=== PATIENT | female | born 1975 | race Two or more races ===

== ENCOUNTER 2023-06-05 09:56 | Emergency (ER) | payer SELFPAY ==
[~2023-06-05] VITALS: Ht 152.4 cm; Wt 62.6 kg
[2023-06-05] MEDS ORDERED: KETOROLAC TROMETH 60MG/2ML VIAL IM ONE (13:00)
[2023-06-05] MEDS ORDERED: DexAMETHasone SOD PHOS 10MG/1ML VIAL INJ IM ONE (13:00)
[2023-06-05 13:52] VITALS: BP 131/75; PULSE 86; RESP 18; TEMP 98; O2SAT 99
[2023-06-05 14:01] LABS: Rapid Strep A Screen-Throat Negative
[2023-06-05 14:14] LABS: COVID19 ANTIGEN SOFIA FIA NEGATIVE (NEGATIVE)
[2023-06-05 14:55] LABS: Rapid Influenza A Negative (Negative); Rapid Influenza B Negative (Negative)
[2023-06-05] MEDS ORDERED: ACET500T58 PO (15:10)
[2023-06-05] MEDS ORDERED: BENZ100C97 PO (15:10)
[2023-06-05] MEDS ORDERED: LORA-622 PO (15:10)
[2023-06-05] MEDS ORDERED: IBUP-1454 PO (15:10)
== END 2023-06-05 15:26 | disposition home or self-care (01) ==
LOC: ER 09:56
DX: J06.9 Acute upper respiratory infection, unspecified (principal); B97.89 Other viral agents as the cause of diseases classified elsewhere; Z20.822 Contact with and (suspected) exposure to COVID-19
CPT/HCPCS: 36415; 71045; 87070; 87426; 87804; 87880; 96372; 99284; J1100; J1885

== ENCOUNTER → 2023-11-14 | Outpatient (CLI) | payer MEDICAID ==
[~2023-11-14] MED LIST: ACET500T58 PO; BENZ100C97 PO; IBUP-1454 PO; LORA-622 PO
[2023-11-14 12:10] LABS: Basophils # (auto) 0.1 10 ^3/uL (0-0.2); Basophils % (auto) 0.6 % (0.0-2.0); Eosinophils # (auto) 0.4 10 ^3/uL (0-0.8); Eosinophils % (auto) 4.5 % (0.0-7.0); Hemoglobin 13.2 g/dL (12.2-16.2); Lymphocytes # (auto) 3.3 10 ^3/uL (0.4-5.4); Lymphocytes % (auto) 34.2 % (10.0-50.0); Mean Corpuscular Hemoglobin 30.2 pg (28.0-32.0); Mean Corpuscular Hgb Conc. 32.9 g/dL (32.0-36.0); Mean Corpuscular Volume 91.6 fL (80.0-100.0); Monocytes # (auto) 0.5 10 ^3/uL (0-1.3); Monocytes % (auto) 5.1 % (0.0-12.0); Neutrophils # (auto) 5.4 10 ^3/uL (1.6-8.6); Neutrophils % (auto) 55.6 % (37.0-80.0); Red Blood Cells 4.36 10^6/uL (4.0-5.20); Red Cell Distribution Width 12.9 % (11.8-14.3); White Blood Cell 9.8 10^3/uL (4.4-10.8)
[2023-11-14 12:28] LABS: Urine Bacteria NONE SEEN /hpf (None Seen); Urine Blood 1+ /uL (Negative); Urine Clarity Clear (Clear); Urine Color Colorless (Yellow); Urine Protein, UAD Negative (Negative); Urine Specific Gravity 1.013 (1.001-1.035); Urine Urobilinogen Normal (Negative); Urine WBC <1 /hpf (0 - 5)
[2023-11-14 13:08] LABS: Alanine Aminotransferase 18 U/L (7-40); Albumin 4.3 g/dL (3.2-4.8); Alkaline Phosphatase 70 U/L (46-116); Anion Gap 6 (5-15); Aspartate Aminotransferase 14 U/L (13-40); BUN/Creatinine Ratio 21.1 (10.0-20.0); Bilirubin, Total 0.4 mg/dL (0.2-1.0); Blood Urea Nitrogen 12 mg/dL (9-23); Calcium 9.5 mg/dL (8.5-10.1); Carbon Dioxide 28 mmol/L (20-30); Chloride 103 mmol/L (98-107); Glucose 90 mg/dL (74-106); Potassium 4.1 mmol/L (3.5-5.1); Sodium 137 mmol/L (136-145)
[2023-11-14 13:09] LABS: Total Protein 7.3 g/dL (5.7-8.2)
[2023-11-14 13:11] LABS: Beta HCG, Quantitative 0.9 mIU/mL (1.5-4.2); Thyroid Stimulating Hormone 3.42 uIU/mL (0.55-4.78)
== END | disposition home or self-care (01) ==
LOC: LAB 11:56
PROVIDERS: ATTEND Obstetrics & Gynecology Gynecologic Oncology
DX: N92.0 Excessive and frequent menstruation with regular cycle (principal); N94.6 Dysmenorrhea, unspecified; R10.2 Pelvic and perineal pain
CPT/HCPCS: 36415; 80053; 81001; 81025; 84443; 84702; 85025

== ENCOUNTER 2024-05-05 09:29 | Emergency (ER) | payer MEDICAID ==
[~2024-05-05] VITALS: Ht 167.6 cm; Wt 63.0 kg
[2024-05-05 10:00] VITALS: TEMP 97.8
[2024-05-05] MEDS: ONDANSETRON ODT 4 MG TAB PO ONE (10:31)
[2024-05-05] MEDS: MORPHINE SULFATE 4 MG/ML SYR/VIAL IM ONE (10:32)
[2024-05-05 10:33] VITALS: O2SAT 99
[2024-05-05 11:02] VITALS: BP 124/90; PULSE 89; RESP 18
[2024-05-05] MEDS ORDERED: IBUP-1455 PO (11:53)
[2024-05-05] MEDS ORDERED: CYCL-837 PO (11:53)
== END 2024-05-05 12:02 | disposition home or self-care (01) ==
LOC: ER 09:29
DX: S13.4XXA Sprain of ligaments of cervical spine, initial encounter (principal); R07.89 Other chest pain; Z79.899 Other long term (current) drug therapy; V89.2XXA Person injured in unspecified motor-vehicle accident, traffic, initial encounter; Y93.I9 Activity, other involving external motion; Y92.89 Other specified places as the place of occurrence of the external cause; Y99.8 Other external cause status
CPT/HCPCS: 71045; 72040; 73030; 96372; 99284; J2270; Q0162

== ENCOUNTER 2025-06-30 19:29 | Emergency (ER) | payer MEDICAID ==
[~2025-06-30] VITALS: Ht 152.4 cm; Wt 64.2 kg
[~2025-06-30 19:29] MED LIST changes: +CYCL-837 PO; +IBUP-1455 PO
[2025-06-30 19:30] VITALS: BP 128/74; PULSE 79; RESP 14; TEMP 98.1; O2SAT 99
[2025-06-30 21:52] LABS: Urine Protein, UAD Negative (Negative)
--- NOTE | 2025-06-30 21:57 | DVH ---
EXAM: XY LUMBAR SPINE 3 VIEW INDICATION: lumbar back pain TECHNIQUE: 2 views of the lumbar spine COMPARISON: XY CERVICAL SPINE 3V on DOS: 05/05/24 FINDINGS/IMPRESSION: No radiographic evidence of an acute osseous abnormality. There is no acute fracture, osseous malalignment, or aggressive focal osseous lesion. No endplate compression fracture, spondylolisthesis, or pars defect. IUD in place. Mild stool burden.
[2025-06-30] MEDS ORDERED: IBUP-1456 PO (23:18)
[2025-06-30] MEDS ORDERED: CYCL-837 PO (23:18)
--- NOTE | 2025-06-30 23:19 | ED.PDOC ---
Back pain HPI HPI Comments 50-year-old female presents to ER with complaints of back pain x2 weeks. Patient reports she has been experiencing unprovoked diffuse lower lumbar back pain x2 weeks. She rates her current pain an 8/10 diffuse to lower lumbar region with intermittent numbness/tingling down posterior bilateral legs. Notes she has been taking ibuprofen for her pain without relief and presents to ER ambulatory on arrival, with steady gait, in no distress. Denies fever, body aches, chills, n/v, chest pain, abdominal pain, trauma/falls/heavy lifting, extremity weakness, changes in urination/bm or any further symptoms/complaints Chief Complaint: Back Pain Time Seen by MD: 20:43 Primary Care Provider: GertrudisOA Reviewed Notes: Nurses Notes, Medications, Allergies Allergies: Coded Allergies: No Known Drug Allergy (Verified Allergy, Unknown, 06/05/23) Home Meds Active Scripts Ibuprofen (Ibuprofen) 800 Mg Tab, 1 TAB PO TID PRN, #30 TAB 0 Refills Prov:JOANN MICHAUD 06/30/25 Cyclobenzaprine Hcl (Cyclobenzaprine Hcl) 5 Mg Tab, 1 TAB PO QHSP, #14 TAB 0 Refills Prov:JOANN MICHAUD 06/30/25 Ibuprofen Micronized (Ibuprofen) 800 Mg Tab, 800 MG PO TIDPRN PRN for 10 Days, #30 TAB 0 Refills Prov:PURVI WAGNER NP 05/05/24 Cyclobenzaprine Hcl (Cyclobenzaprine Hcl) 5 Mg Tab, 1 TAB PO QHSP PRN for 30 Days, #30 TAB 0 Refills Prov:PURVI WAGNER NP 05/05/24 Benzonatate (Benzonatate) 100 Mg Cap, 1 CAP PO TID, #20 CAP Prov:ANNAMARIE GILL PAC 06/05/23 Loratadine (Claritin) 10 Mg Tab, 1 TAB PO DAILY for 14 Days, #14 TAB 0 Refills Prov:ANNAMARIE GILL 06/05/23 Ibuprofen (Ibuprofen) 600 Mg Tab, 1 TAB PO Q6HP PRN, #30 TAB Prov:ANNAMARIE GILL PAC 06/05/23 Acetaminophen (Acetaminophen) 500 Mg Tab, 500 MG PO Q4HP PRN, #30 TAB Prov:ANNAMARIE GILL 06/05/23 Information Source: Patient Mode of Arrival: Ambulatory Past Medical History PAST MEDICAL HISTORY: Denies Surgical History: Denies all surgeries INTERNAL MEDICINE NURSE PRACTITIONER History: No Pertinent INTERNAL MEDICINE NURSE PRACTITIONER History Family History Family History: Unknown Social History Smoker: Non-Smoker Alcohol: Denies ETOH Use Drugs: Denies Drug Use Lives In: Home Constitutional: denies: chills, diaphoresis, fatigue, fever, malaise, sweats, weakness, others EENTM: denies: blurred vision, double vision, ear bleeding, ear discharge, ear drainage, ear pain, ear ringing, eye pain, eye redness, hearing loss, mouth pain, mouth swelling, nasal discharge, nose bleeding, nose congestion, nose pain, photophobia, tearing, throat pain, throat swelling, voice changes, others Respiratory: denies: cough, hemoptysis, orthopnea, SOB at rest, shortness of breath, SOB with excertion, stridor, wheezing, others Cardiovascular: denies: chest pain, dizzy spells, diaphoresis, Dyspnea on exertion, edema, irregular heart beat, left arm pain, lightheadedness, palpitations, PND, syncope, others Gastrointestinal: denies: abdomen distended, abdominal pain, blood streaked bowels, constipated, diarrhea, dysphagia, difficulty swallowing, hematemesis, melena, nausea, poor appetite, poor fluid intake, rectal bleeding, rectal pain, vomiting, others Genitourinary: denies: abnormal vagina bleeding, burning, dyspareunia, dysuria, flank pain, frequency, hematuria, incontinence, pain, , vagina discharge, urgency, others Neurological: denies: dizziness, fainting, headache, left sided numbness, left sided weakness, numbness, paresthesia, pre-existing deficit, right sided numbness, right sided weakness, seizure, speech problems, tingling, tremors, weakness, others Musculoskeletal: reports: others (As stated in HPI) Integumetry: denies: bruises, change in color, change in hair/nails, dryness, laceration, lesions, lumps, rash, wounds, others Allergic/Immunocompromised: denies: Difficulty Healing, Frequent Infections, Hives, Itching, others Hematologic/Lymphatic: denies: anemia, blood clots, easy bleeding, easy bruising, swollen glands, others Endocrine: denies: excessive hunger, excessive sweating, excessive thirst, excessive urination, flushing, intolerance to cold, intolerance to heat, unexplained weight gain, unexplained weight loss, others Psychiatric: denies: anxiety, bipolar disorder, depression, hopeless, panic disorder, schizophrenia, sleepless, suicidal, others Physical Exam General Appearance: No Apparent Distress HEENT: PERRL/EOMI Neck: Full Range of Motion, Non-Tender, Normal Respiratory: Chest Non-Tender, Lungs Clear, No Accessory Muscle Use, No Respiratory Distress, Normal Breath Sounds Cardiovascular: No Murmur, No Gallop, Regular Rate/Rhythm Breast Exam: Deferred Gastrointestinal: Non Tender, No Pulsatile Mass, Soft Genitalia: Deferred Pelvic: Deferred Rectal: Deferred Extremities: No calf tenderness, Normal capillary refill, Normal range of motion Musculoskeletal : Extremity Location: Back (TTP to bilateral lower lumbar paraspinals and centralized to lower lumbar spine noted. No skin changes noted. Steady gait appreciated) Neurologic: Alert, No Motor Deficits, Normal Affect, Normal Mood, No Sensory Deficits Cerebellar Function: Normal Reflexes: Normal Skin: Dry, Warm Peripheral Pulses: 2+ femoral (R), 2+ femoral (L), 2+ dorsalis pedis (R), 2+ dorsalis pedis (L), 2+ Radial (R), 2+ Radial (L), 2+ Brachial (R), 2+ Brachial (L) Lymphatic: No Adenopathy Was a procedure done? Was a procedure done?: No Sedation Sedation?: No Back Pain Differential Dx Differential Diagnosis: AAA, Fracture, Other (UTI) X-Ray, Labs, Meds, VS Vital Signs Date Time Temp Pulse Resp B/P (MAP) Pulse Ox O2 Delivery O2 Flow Rate FiO2 06/30/25 19:30 Room Air 06/30/25 19:30 98.1 79 14 128/74 99 98.1 Lab Test 06/30/25 21:15 Range/Units Urine Color Light-brown Yellow Urine Clarity Clear Clear Urine pH 6.0 5.0-9.0 Urine Specific [place] 1.017 1.001-1.035 Urine Protein Negative Negative Urine Ketones Negative Negative Urine Blood Trace H Negative /uL Urine Nitrite Negative Negative Urine Bilirubin Negative Negative Urine Urobilinogen Normal Negative mg/dL Urine Leukocyte Esterase Negative Negative /uL Urine RBC 2 0 - 4 /hpf Urine Microscopic WBC 2 0-5 /HPF Urine Squamous Epithelial Cells Few <5 /hpf Urine Bacteria Few H None Seen /hpf Urine Glucose Normal Normal mg/dL PATIENT: DISHA HENDRICKSON CASTELANACCT: [id number]: [id number] : 1975 LOC: ER ROOM / BED: / AGE / SEX: 50 / F ADM STATUS: REG ER SERVICE 12 ORDERING PHYSICIAN: JOANN MICHAUD PROCEDURE(s): LUMB2 - LUMBAR SPINE 3 VIEW REASON: lumbar back pain ORDER NUMBER(s): [id number], ACCESSION NUMBER(s): [id number] EXAM: XY LUMBAR SPINE 3 VIEW INDICATION: lumbar back pain TECHNIQUE: 2 views of the lumbar spine COMPARISON: XY CERVICAL SPINE 3V on DOS: 05/05/24 FINDINGS/IMPRESSION: No radiographic evidence of an acute osseous abnormality. There is no acute fracture, osseous malalignment, or aggressive focal osseous lesion. No endplate compression fracture, spondylolisthesis, or pars defect. IUD in place. Mild stool burden. ATED BY: REUBEN CASAS MD DICTATED DATE/TIME: 06/30/252154 SIGNED BY: REUBEN CASAS MD SIGNED DATE/TIME: 06/30/252154 CC: Lumbar spine x-ray reviewed Urinalysis reviewed without any significant abnormalities Toradol 60 mg IM ordered Patient neurovascularly intact and reported improvement in symptoms prior to discharge Advised on rest/no strenuous activity Advised to follow up with PCP in 1-2 days Patient verbalized understanding and agreeable with current plan of care Advised to return to ER immediately if symptoms worsen Images Reviewed?: Images reviewed and evaluated by me Time of 1ST Reevaluation: 23:02 Reevaluation 1ST: N/A Patient Education/Counseling: Diagnosis, Treatment, Prognosis, Need For Follow Up Family Education/Counseling: No Family Present SEPSIS Sepsis Screen Date sepsis recognized/suspect: Jun 30, 2025 Time Sepsis recognized/suspect: 1931 Recent Procedure: No On Antibiotic Therapy: No Respiratory Rate >20: No Heart Rate >90: No Temp<36 C (96.8 F) or >38.3 C: No SBP <90 or MAP <65 mmHG: No New Acute Mental Status Change: No Is the patient on CPAP, BIPAP,: No Physician Orders Lumbar Spine 3 View (06/30/25 21:13) Ketorolac Injection (Toradol Injection) (06/30/25 23:30) Vital Signs Date Time Temp Pulse Resp B/P (MAP) Pulse Ox O2 Delivery O2 Flow Rate FiO2 06/30/25 19:30 Room Air 06/30/25 19:30 98.1 79 14 128/74 99 98.1 Departure 1 Departure Time of Disposition: 23:17 Impression: Primary Impression: Bilateral sciatica Disposition: 01 HOME / SELF CARE / HOMELESS Condition: Stable e-Prescriptions Ibuprofen (Ibuprofen) 800 Mg Tab 1 TAB PO TID PRN, #30 TAB 0 Refills Prov: JOANN MICHAUD 06/30/25 Cyclobenzaprine Hcl (Cyclobenzaprine Hcl) 5 Mg Tab 1 TAB PO QHSP, #14 TAB 0 Refills Prov: JOANN MICHAUD 06/30/25 Discharged With: Self Critical Care Note Critical Care Time?: No Stability Stability form required: No Heart Score Heart Score: Heart Score Response (Comments) Value History N/A 0 EKG N/A 0 Age N/A 0 Risk Factors N/A 0 Troponin N/A 0 Total 0 JOANN MICHAUD Jun 30, 2025 23:18
[2025-06-30] MEDS: KETOROLAC TROMETH 60MG/2ML VIAL IM ONE (23:26)
== END 2025-06-30 23:35 | disposition home or self-care (01) ==
LOC: ER 19:29
DX: M54.41 Lumbago with sciatica, right side (principal); M54.42 Lumbago with sciatica, left side; Z79.899 Other long term (current) drug therapy
CPT/HCPCS: 72100; 81001; 96372; 99284; J1885